=== PATIENT | female | born 1960 | race Caucasian/White ===

== ENCOUNTER → 2017-11-02 | Outpatient (CLI) | payer BC ==
[~2017-11-02] MED LIST: CALCTAB32 OR; COEN400C PO; CYAN1000P; GLUC500C4 OR; NATU16.2 OR; OMEGCAP19 PO; PRAV40TA2
--- NOTE | 2017-11-02 10:45 | RADRPT ---
EXAM DATE/TIME: 11/02/2017 10:28 [facility] COMPARISON: No previous studies available for comparison. INDICATIONS : Multiple syncopal episodes since June. RADIATION DOSE: 35.64 CTDIvol (mGy) MEDICAL HISTORY : Non-responsive. SURGICAL HISTORY : Non-responsive. ENCOUNTER: Initial ACUITY: 3 months PAIN SCALE: 0/10 LOCATION: cranial TECHNIQUE: Multiple contiguous axial images were obtained of the head. Using automated exposure control and adj ustment of the mA and/or kV according to patient size, radiation dose was kept as low as reasonably a chievable to obtain optimal diagnostic quality images. DICOM format image data is available electro nically for review and comparison. FINDINGS: CEREBRUM: The ventricles are normal for age. No evidence of midline shift, mass lesion, hemorrhage or acute in farction. No extra-axial fluid collections are seen. POSTERIOR FOSSA: The cerebellum and brainstem are intact. The 4th ventricle is midline. The cerebellopontine angle i s unremarkable. EXTRACRANIAL: The visualized portion of the orbits is intact. SKULL: The calvaria is intact. No evidence of skull fracture. CONCLUSION: Normal examination. Levy Sterling MD on November 02, 2017 at 10:43 Board Certified Radiologist. This report was verified electronically.
--- NOTE | 2017-11-02 11:43 | RADRPT ---
EXAM DATE/TIME: 11/02/2017 10:59 [facility] COMPARISON: No previous studies available for comparison. INDICATIONS : Syncope. MEDICAL HISTORY : Hypercholesterolemia. Hypothyroid. Thyroiditits. SURGICAL HISTORY : Tonsillectomy. Left knee reconstruction x 2. ENCOUNTER: Initial ACUITY: 4-6 months PAIN SCORE: 0/10 LOCATION: Bilateral neck PEAK SYSTOLIC VELOCITIES (cm/sec): ICA/CCA RATIO: Right: 0.9 Left: 1.0 ICA: Right: 76.3 Left: 77.4 CCA: Right: 87.5 Left: 78.7 ECA: Right: 64.2 Left: 59.2 VERTEBRAL: Right: 50.5 antegrade Left: 39.1 antegrade Elevated flow velocities and ICA/CCA ratios have been found to correlate with increased degrees of vessel stenosis, calculated as percentage of diameter relative to a normal segment of distal ICA/CCA FINDINGS: RIGHT CAROTID: No significant stenosis is visualized. The waveforms are within normal limits. LEFT CAROTID: No significant stenosis is visualized. The waveforms are within normal limits. VERTEBRAL ARTERIES: Antegrade flow is seen in both vertebral arteries. MISCELLANEOUS: None. CONCLUSION: No hemodynamically significant stenosis in either carotid artery. Aníbal Degroot MD on November 02, 2017 at 11:40 Board Certified Radiologist. This report was verified electronically.
--- NOTE | 2017-11-02 17:50 | ECHRPT ---
Indication: SYNCOPE CONCLUSIONS The left ventricular systolic function is hyperdynamic with an estimated ejection fraction in the ra nge of 65- 70%. Normal left ventricular size. Wall thickness is normal. No regional wall motion abnormalities are present. Trace mitral valve regurgitation. Trace aortic valve regurgitation. There is trace tricuspid valve regurgitation. The estimated pulmonary arterial pressure is 34.2 mmHg. BP: / HR: Rhythm: Sinus MEASUREMENTS (Male / Female) Normal Values Technical Quality:Good 2D ECHO LV Diastolic Diameter PLAX 3.1 cm 4.2 - 5.9 / 3.9 - 5.3 cm LV Systolic Diameter PLAX 2.1 cm IVS Diastolic Thickness 1.1 cm 0.6 - 1.0 / 0.6 - 0.9 cm LVPW Diastolic Thickness 1.1 cm 0.6 - 1.0 / 0.6 - 0.9 cm LV Relative Wall Thickness 0.7 RV Internal Dim ED PLAX 2.4 cm LVOT Diameter 1.9 cm LV Ejection Fraction MOD 4C 63.9 % LV Ejection Fraction 4C AL 65.5 % M-MODE Aortic Root Diameter MM 2.0 cm AV Cusp Separation MM 1.5 cm DOPPLER AV Peak Velocity 130.0 cm/s AV Peak Gradient 6.8 mmHg AI Peak Velocity 255.0 cm/s AI Peak Gradient 26.0 mmHg AI Pressure Half Time 941.0 ms LVOT Peak Velocity 80.9 cm/s LVOT Peak Gradient 2.6 mmHg AV Area Cont Eq pk 1.8 cm MV Area PHT 3.5 cm Mitral E Point Velocity 69.6 cm/s Mitral A Point Velocity 102.0 cm/s Mitral E to A Ratio 0.7 LV E' Lateral Velocity 11.1 cm/s Mitral E to LV E' Lateral Ratio 6.3 LV E' Septal Velocity 6.8 cm/s Mitral E to LV E' Septal Ratio 10.2 TR Peak Velocity 246.0 cm/s TR Peak Gradient 24.2 mmHg Right Atrial Pressure 10.0 mmHg Pulmonary Artery Systolic Pressu 34.2 mmHg Right Ventricular Systolic Press 34.2 mmHg PV Peak Velocity 96.4 cm/s PV Peak Gradient 3.7 mmHg FINDINGS LEFT VENTRICLE The left ventricular systolic function is hyperdynamic with an estimated ejection fraction in the ra nge of 65- 70%. Normal left ventricular size. Wall thickness is normal. No regional wall motion abnormalities are present. RIGHT VENTRICLE Normal right ventricular size and systolic function. LEFT ATRIUM The left atrial size is normal. RIGHT ATRIUM The right atrial size is normal. ATRIAL SEPTUM Normal atrial septal thickness without atrial level shunting by limited color doppler interrogation. AORTA The aortic root and proximal ascending aorta are normal in size on limited imaging. MITRAL VALVE Structurally normal mitral valve. Trace mitral valve regurgitation. AORTIC VALVE Trileaflet aortic valve. Trace aortic valve regurgitation. TRICUSPID VALVE Structurally normal tricuspid valve. There is trace tricuspid valve regurgitation. The estimated pulmonary arterial pressure is 34.2 mmHg. PULMONARY VALVE No pulmonary valve regurgitation or stenosis. VESSELS The inferior vena cava is normal in size. PERICARDIUM No pericardial effusion. Christian Harley MD, FACC, FSCAI (Electronically Signed) Final Date:02 November 2017 17:49
--- NOTE | 2017-11-02 18:04 | TR ---
Date Performed: 11/02/2017 Time Performed: 12:28:31 DOCTOR: Coty Ambriz DRUG LIST: CLINICAL HISTORY: REASON FOR TEST: REASON FOR ENDING: OBSERVATION: CONCLUSION: Tobin protocol completed. Stopped sec to exceeding target heart rate. Maximum PK=408 Target HR Zbwgopsa=055.0% Maximum XC=323/86 Total Exercise Time=7:01. Good exercise tolerance. Norm al bp response. No reprod chest pain. Rare PVC. St segments upsloping. Recovery quick and unremarable . COMMENTS: no ischemia
== END ==
LOC: HRAD 09:52
PROVIDERS: ATTEND Allergy & Immunology
DX: R55 Syncope and collapse (principal); R07.1 Chest pain on breathing; R00.2 Palpitations; I65.29 Occlusion and stenosis of unspecified carotid artery
CPT/HCPCS: 70450; 93017; 93306; 93880

== ENCOUNTER → 2017-11-09 | Outpatient (CLI) | payer BC | LOC: HCAV 14:25 | PROVIDERS: ATTEND Allergy & Immunology | DX: R55 Syncope and collapse (principal); R00.2 Palpitations | CPT/HCPCS: 93270 ==